=== PATIENT | male | born 1995 ===

== ENCOUNTER 2021-02-13 11:36 | Day surgery (SDC) | payer OTHER ==
[2021-02-11 16:06] VITALS: BMI 29.1
[2021-02-13] MEDS ORDERED: Lidocaine 1% MPF 2 ML VIAL ONE (12:46)
[2021-02-13] MEDS ORDERED: EPINEPHrine 1 MG/ML AMP ONE (12:51)
[2021-02-13] MEDS ORDERED: Bupivacaine PF 0.5% 30 ML VIAL ONE (12:52)
[2021-02-13] MEDS ORDERED: Fentanyl 100 MCG/2 ML VIAL ONE ×3 (13:40→15:37)
[2021-02-13] MEDS ORDERED: PROPOFOL 20 ML ONE (13:40)
[2021-02-13] MEDS ORDERED: Midazolam HCl 2 mg/2 ml Vial ONE ×2 (13:40)
[2021-02-13] MEDS ORDERED: Ondansetron PF 4 MG/2 ML Vial ONE (13:40)
[2021-02-13] MEDS ORDERED: Dexamethasone 20 MG/5 ML VIAL ONE (13:40)
[2021-02-13] MEDS ORDERED: Ketorolac Tromethamine 30 MG/ML VIAL ONE (13:41)
[2021-02-13] MEDS ORDERED: Sodium Chloride 0.9% 10 ML ONE (13:45)
== END 2021-02-13 16:45 | disposition home or self-care (01) ==
LOC: CSHSDC 11:36
PROVIDERS: ATTEND Orthopaedic Surgery
PROC: 0SQD4ZZ Repair Left Knee Joint, Percutaneous Endoscopic Approach (ICD-10-PCS; principal; 2021-02-13)
DX: S83.232A Complex tear of medial meniscus, current injury, left knee, initial encounter (principal)
CPT/HCPCS: C1713; J0171; J1100; J1885; J2250; J2405; J2704; J3010; S0020